=== PATIENT | female | born 1995 | race Caucasian/White ===

== ENCOUNTER 2023-10-27 08:56 | Emergency (ER) | payer MEDICAID | END 2023-10-27 10:16 | disposition home or self-care (01) | LOC: ERS 08:56 | DX: B34.9 Viral infection, unspecified (principal); E11.9 Type 2 diabetes mellitus without complications; I10 Essential (primary) hypertension; Z79.899 Other long term (current) drug therapy; Z79.84 Long term (current) use of oral hypoglycemic drugs | CPT/HCPCS: 71045 ==

== ENCOUNTER 2023-11-08 06:43 | Emergency (ER) | payer MEDICAID ==
[2023-11-08] MEDS ORDERED: Bupivacaine 0.25% 10 ML VIAL ONE (07:12)
[2023-11-08] MEDS ORDERED: Ketorolac Tromethamine 30 MG (1 mL) VIAL ONE (07:12)
== END 2023-11-08 07:42 | disposition home or self-care (01) ==
LOC: ERS 06:43
DX: K03.81 Cracked tooth (principal); E11.9 Type 2 diabetes mellitus without complications; I10 Essential (primary) hypertension; Z55.6 Problems related to health literacy
CPT/HCPCS: 96372; 99282; J0665; J1885